=== PATIENT | male | born 1955 ===

== ENCOUNTER 2021-03-21 20:45 | Emergency (ER) | payer OTHER ==
[2021-03-21] MEDS ORDERED: Bacitracin Oint 1 GM U/D Packet TOP ONE (21:15)
--- NOTE | 2021-03-21 22:49 | EDM.PDOC ---
ED HPI GENERAL MEDICAL PROBLEM - General Chief Complaint: Laceration Stated Complaint: HAND LACERATION Time Seen by Provider: 03/21/21 22:05 Source of Information: Reports: Patient History Limitations: Reports: No Limitations - History of Present Illness INITIAL COMMENTS - FREE TEXT/NARRATIVE: wound laceration to left hand - was on a boat - and accidently cut him on an edge of plastic door. bleeding controlled with pressure no FB. no dirt. he washed it and covered it. Onset: Sudden Duration: Hour(s): (1) - Related Data Allergies Allergy/AdvReac Type Severity Reaction Status Date / Time No Known Allergies Allergy Verified 03/21/21 22:36 ED ROS GENERAL - Review of Systems Review Of Systems: See Below Constitutional: Reports: No Symptoms HEENT: Reports: No Symptoms Respiratory: Reports: No Symptoms Cardiovascular: Reports: No Symptoms GI/Abdominal: Reports: No Symptoms Neurological: Reports: No Symptoms ED EXAM, SKIN/RASH Exam: See Below Exam Limited By: No Limitations General Appearance: Alert, No Apparent Distress Eye Exam: Bilateral Eye: EOMI Head: Atraumatic Respiratory/Chest: No Respiratory Distress Cardiovascular: Normal Peripheral Pulses GI/Abdominal: Normal Bowel Sounds Skin: Other (3 cm laceration to left hand.) ED SKIN PROCEDURES - Laceration/Wound Repair Left Hand Appearance: Superficial, Irregular Distal NVT: Neuro & Vascular Intact Local Anesthesia - Lidocaine (Xylocaine): 1% with EPI Local Anesthetic Volume: 2cc Skin Prep: Chlorhexidine (Hibiciens) Closed with: Sutures Lac/Wound length In cm: 3 Suture Size: 4-0 # of Sutures: 7 Suture Type: Prolene Tetanus Status Addressed: Yes Complications: No Course - Re-Assessments/Exams Free Text/Narrative Re-Assessment/Exam: see procedure note Departure - Departure Time of Disposition: 22:48 Disposition: Home, Self-Care 01 Condition: Good Clinical Impression: Laceration of hand Qualifiers: Encounter type: initial encounter Foreign body presence: without foreign body Laterality: left Qualified Code(s): S61.412A - Laceration without foreign body of left hand, initial encounter - Discharge Information *PRESCRIPTION DRUG MONITORING PROGRAM REVIEWED*: Not Applicable *COPY OF PRESCRIPTION DRUG MONITORING REPORT IN PATIENT MIRIAM: Not Applicable Instructions: Wound Care, Adult Forms: ED Department Discharge Additional Instructions: Discharge home. Antibiotic ointment daily. Monitor for signs of infection-swelling, pus, increased pain. Tylenol for pain as needed. Follow up in the clinic in 7-10 days for suture removal. Do not wash hand for 48 hours to prevent from entering the wound. - Problem List & Annotations (1) Laceration of hand SNOMED Code(s): 130916993 Code(s): S61.419A - LACERATION WITHOUT FOREIGN BODY OF UNSP HAND, INIT ENCNTR Status: Acute Priority: Low Qualifiers: Encounter type: initial encounter Foreign body presence: without foreign body Laterality: left Qualified Code(s): S61.412A - Laceration without foreign body of left hand, initial encounter - Problem List Review Problem List Initiated/Reviewed/Updated: Yes - Assessment/Plan Plan: - keep wound dry and clean - apply antibiotics ointment on the wound once daily - stitches removal after 7 days - watch for signs of wound infection
[2021-03-22] MEDS ORDERED: Lidocaine 1% with EPINEPHrine 1:100,000 20 ML MDV INJECT ONE (02:13)
== END 2021-03-21 22:50 | disposition home or self-care (01) ==
LOC: LB.ED 20:45
DX: S61.412A Laceration without foreign body of left hand, initial encounter (principal); W26.8XXA Contact with other sharp object(s), not elsewhere classified, initial encounter
CPT/HCPCS: 12002; 99282; 99282-25